=== PATIENT | female | born 1965 | race Caucasian/White ===

== ENCOUNTER 2020-03-23 16:26 | Observation (INO) ==
[2020-03-23] MEDS ORDERED: Azithromycin 500 MG in 0.9 % Sodium Chloride 250 ML IVPB ONE (17:23)
[2020-03-23] MEDS ORDERED: cefTRIAXone 1,000 MG in Water for inj. (sterile) 10 ML IVP ONE (17:23)
[2020-03-23] MEDS ORDERED: *HR* HYDROmorphone (PF) 1 MG/ML SYRINGE IVP STA (17:42)
[2020-03-23 17:48] LABS: Bilirubin,Urine Small (Negative); Blood,Urine Large (Negative); Clarity,Urine Turbid (Clear); Color,Urine Yellow (Yellow); Glucose,Urine (UA) Normal (Normal); Ketones,Urine Negative (Negative); Leukocyte Esterase,Urine Large (Negative); Nitrite,Urine Positive (Negative); Protein,Urine 100 mg/dL (Neg-Trace); Specific Gravity,Urine 1.026 (1.010-1.025); Urobilinogen,Urine Normal (Normal)
[2020-03-23 17:49] LABS: Basophils # 0.1 K/mcL (0.0-0.2); Basophils % 0.5 %; Eosinophils # 0.3 K/mcL (0.0-0.6); Eosinophils % 2.9 %; Hemoglobin 13.3 g/dL (11.5-15.4); Immature Granulocytes % 0.5 % (0-4); Lymphocytes # 2.6 K/mcL (0.6-4.6); Lymphocytes % 23.9 %; Mean Corpuscular HGB Conc 30.9 g/dL (31.6-35.5); Mean Corpuscular Hemoglobin 25.5 pg (28.0-33.3); Mean Corpuscular Volume 82.4 fL (83.0-100.0); Monocytes # 0.6 K/mcL (0.0-1.3); Monocytes % 5.4 %; Neutrophils # 7.4 K/mcL (1.6-8.9); Platelet Count 203 K/mcL (140-400); Red Blood Count 5.22 M/mcL (3.82-4.97); Red Cell Distribution Width 13.5 % (11.5-14.5); Segmented Neutrophils % 66.8 %
[2020-03-23 17:51] LABS: Bacteria,Urine Many per hpf (None-Few); Hyaline Casts,Urine None Seen per lpf (None-Few); RBC,Urine TNTC per hpf (0-3); Squamous Epithelial Cell,Urine Many per lpf (None-Few); WBC,Urine TNTC per hpf (0-3)
[2020-03-23 17:54] LABS: Prothrombin Time 11.3 Seconds (9.4-12.1)
[2020-03-23 18:12] LABS: Alanine Aminotransferase 23 Units/L (7-52); Albumin/Globulin Ratio 1.3 (1.1-2.2); Alkaline Phosphatase 167 Units/L (34-104); Aspartate Amino Transferase 20 Units/L (13-39); BUN/Creatinine Ratio 19 (6-26); Bilirubin,Indirect 0.4 mg/dL (0.0-1.0); Bilirubin,Total 0.4 mg/dL (0.3-1.0); Blood Urea Nitrogen 18 mg/dL (6-20); C-Reactive Protein 28 mg/L (Less than 10); Calcium 8.8 mg/dL (8.6-10.3); Carbon Dioxide 21 mEq/L (23-29); Chloride 104 mEq/L (98-107); Globulin 3.2 g/dL (2.4-3.5); Glucose 159 mg/dL (70-105); Lactate Dehydrogenase 181 Units/L (140-271); Magnesium 1.9 mg/dL (1.6-2.6); Osmolality,Calculated 291 (280-300); Potassium 3.9 mEq/L (3.5-5.1); Sodium 138 mEq/L (136-145); Total Protein 7.2 g/dL (6.4-8.9); Troponin I < 0.03 ng/mL (< 0.04); eGFR For African Americans > 60 (> 60); eGFR For Non-African Americans > 60 (> 60)
[2020-03-23 18:31] LABS: Ferritin 28 ng/mL (10-120)
[2020-03-23] MEDS ORDERED: *HR* HYDROmorphone (PF) 1 MG/ML SYRINGE IVP ONE (20:46)
[2020-03-24] MEDS ORDERED: MethylPREDNISolone 40 MG/ML VIAL IVP ONE (00:19)
[2020-03-24] MEDS ORDERED: Naloxone 0.4 MG/ML INJ IVP PRN (00:19)
[2020-03-24 02:27] LABS: Adenovirus Not Detected (Not Detect); Bordetella Pertussis Not Detected (Not Detect); Chlamydophila pneumoniae Not Detected (Not Detect); Coronavirus 229E Not Detected (Not Detect); Coronavirus HKU1 Not Detected (Not Detect); Coronavirus NL63 Not Detected (Not Detect); Coronavirus OC43 Not Detected (Not Detect); Human Metapneumovirus Not Detected (Not Detect); Human Rhinovirus/Enterovirus Not Detected (Not Detect); Influenza A Subtype 2009 H1 Not Detected (Not Detect); Influenza B Not Detected (Not Detect); Mycoplasma pneumoniae Not Detected (Not Detect); Parainfluenza Virus 1 Not Detected (Not Detect); Parainfluenza Virus 2 Not Detected (Not Detect); Parainfluenza Virus 3 Not Detected (Not Detect); Parainfluenza Virus 4 Not Detected (Not Detect); Respiratory Syncytial Virus Not Detected (Not Detect)
[2020-03-24] MEDS: Ipratropium 1 PUFF INHALER IH SCH ×7 (03:39→19:51)
[2020-03-24 04:04] LABS: Basophils % 0.4 %; Eosinophils # 0.1 K/mcL (0.0-0.6); Eosinophils % 1.2 %; Hematocrit 40.7 % (35.3-44.9); Hemoglobin 12.7 g/dL (11.5-15.4); Immature Granulocytes % 0.3 % (0-4); Lymphocytes # 1.7 K/mcL (0.6-4.6); Lymphocytes % 17.9 %; Mean Corpuscular HGB Conc 31.2 g/dL (31.6-35.5); Mean Corpuscular Hemoglobin 26.2 pg (28.0-33.3); Mean Corpuscular Volume 84.1 fL (83.0-100.0); Mean Platelet Volume 11.7 fL (9.4-12.4); Monocytes # 0.2 K/mcL (0.0-1.3); Neutrophils # 7.3 K/mcL (1.6-8.9); Platelet Count 181 K/mcL (140-400); Red Blood Count 4.84 M/mcL (3.82-4.97); Red Cell Distribution Width 13.5 % (11.5-14.5); Segmented Neutrophils % 78.2 %; White Blood Count 9.3 K/mcL (4.3-11.1)
[2020-03-24 04:06] LABS: VBG HCO3 28 mEq/L (21-27); VBG PCO2 56 mmHg (41-51); VBG PO2 104 mmHg (25-50)
[2020-03-24] MEDS ORDERED: hydrOXYzine pamoate 25 MG CAPSULE PO PRN (04:08)
[2020-03-24 04:27] LABS: Alanine Aminotransferase 21 Units/L (7-52); Albumin/Globulin Ratio 1.3 (1.1-2.2); Alkaline Phosphatase 168 Units/L (34-104); Aspartate Amino Transferase 17 Units/L (13-39); BUN/Creatinine Ratio 20 (6-26); Bilirubin,Total 0.4 mg/dL (0.3-1.0); Blood Urea Nitrogen 18 mg/dL (6-20); Calcium 8.9 mg/dL (8.6-10.3); Carbon Dioxide 25 mEq/L (23-29); Chloride 103 mEq/L (98-107); Gamma Glutamyl Transpeptidase 30 Units/L (7-64); Globulin 3.2 g/dL (2.4-3.5); Glucose 149 mg/dL (70-105); Osmolality,Calculated 289 (280-300); Phosphorous 3.7 mg/dL (2.7-4.5); Potassium 4.5 mEq/L (3.5-5.1); Sodium 137 mEq/L (136-145); Total Protein 7.2 g/dL (6.4-8.9); eGFR For African Americans > 60 (> 60); eGFR For Non-African Americans > 60 (> 60)
[2020-03-24 04:40] LABS: Thyroid Stimulating Hormone 0.846 mcIU/mL (0.340-5.600)
[2020-03-24 08:35] LABS: Estimated Average Glucose 143 mg/dl
[2020-03-24] MEDS ORDERED: cefTRIAXone 2,000 MG in Water for inj. (sterile) 10 ML IVP SCH (09:00)
[2020-03-24] MEDS ORDERED: PARoxetine 20 MG TABLET PO SCH (09:00)
[2020-03-24] MEDS ORDERED: predniSONE 20 MG TABLET PO SCH (09:00)
[2020-03-24] MEDS: atenoloL 50 MG TABLET PO SCH ×2 (09:02→20:01)
[2020-03-24] MEDS: Gabapentin 300 MG CAPSULE PO SCH ×3 (09:02→20:00)
[2020-03-24] MEDS ORDERED: Azithromycin 250 MG TABLET PO SCH (17:00)
[2020-03-24] MEDS ORDERED: *HR* Enoxaparin 40 MG/0.4 ML SYRINGE SQ SCH (17:00)
[2020-03-24 20:02] VITALS: BP 152/89
[2020-03-25] MEDS ORDERED: *HR* Heparin 5,000 UNIT/ML VIAL SQ SCH (06:00)
== END 2020-03-24 20:30 | disposition home or self-care (01) ==
LOC: EMEROOARM 16:26 → 2NENU 16:26 → SUATTDRO 21:02 → 2NENU 21:48
PROVIDERS: ADMIT Family Medicine; ATTEND Internal Medicine